=== PATIENT | female | born 1950 | race Hispanic/Latino ===

== ENCOUNTER → 2018-12-31 | Day surgery (SDC) | payer OTHER ==
[2018-12-23 12:03] LABS: BASOPHILS % 0.7 % (0.0-1.0); EOSINOPHILS # (AUTO) 0.2 (0.0-0.4); EOSINOPHILS % 3.1 % (0.0-6.0); HEMATOCRIT 45.2 % (34.2-44.1); LYMPHOCYTES # (AUTO) 2.1 (1.0-3.2); LYMPHOCYTES % 35.8 % (18.0-39.1); MEAN CORPUSCULAR HEMOGLOBIN 27.1 pg (28-32); MEAN CORPUSCULAR VOLUME 87.4 fL (81-99); MONOCYTES # (AUTO) 0.5 (0.2-0.8); MONOCYTES % 7.8 % (4.4-11.3); NEUTROPHILS % 52.4 % (38.7-80.0); PLATELET COUNT 399 x10e3/uL (140-360); RED BLOOD COUNT 5.17 x10e6/uL (3.6-5.1)
[~2018-12-31] MED LIST: ARTHRITIS; BIOTIN PO; BIOTIN5 M1 PO; CINNAMON500 MG PO; COLLAGEN PO; EMBREL PO; FENTANYL CITRATE/PF 100MCG/2 ML INJ ONE; FISH OIL 1,0001 EAC3 PO; FOLIC ACID1 MG PO; HYDROCODONE PO; HYOSCYAMINE SULFATE 0.5 MG/ML INJ ONE; HYOSCYAMINE0.125 M1 PO; IRON PO; KETAMINE HCL INJ 50 MG/ML 10 ML VIAL ONE; LIDOCAINE HCL 2% LOCAL INJ 5 ML SDV VIAL INJ ONE; LINZESS PO; LYRICA50 MG PO; METHOCARBAMOL750 MG PO; METHOTREXATE PO; MIDAZOLAM HCL 2 MG/2 ML VIAL ONE; MUSCLE RELAXER PO; NAPROXEN250 MG PO; NIACIN; OMEGA 3 FISH O1 EACH PO; OMEPRAZOLE; PANTOPRAZOLE SO40 MG PO; PREDNISONE5 MG PO; PRENATAL PO; PROPOFOL IV EMULSION 10 MG/ML 50 ML VIAL ONE; SUCRALFATE1 GM PO; ULTRAM 50MG50 MG PO; VITAMIN C500 M3 PO; VITAMIN E400 UNIT PO; flexeril PO
--- OUTSIDE RECORDS SUMMARY | 2018-12-31 08:00 | XMS REPORT | Clinical Summary ---
Author Author [facility] Address Unknown Phone Unavailable Care Team Providers Care Cloth Mercerizing Supervisor Name Role Phone Justin Palencia PCP Allergies No Known Allergies Medications End Date Status Medication Sig Dispensed Refills Start Date Active pantoprazole (PROTONIX) Take 40 mg by 0 40 MG tablet mouth daily. Active folic acid (FOLVITE) 1 MG Take 1 mg by 0 tablet mouth daily. Active sucralfate (CARAFATE) 1 Take 1 g by 0 gram tablet mouth 4 (four) times daily. Active etanercept (ENBREL) 50 Inject 50 mg 0 mg/mL (0.98 mL) injection subcutaneousl y once a week. Active traMADol (ULTRAM) 50 mg Take 50 mg by 0 tablet mouth every 8 (eight) hours as needed for Pain . Active linaclotide (LINZESS) 145 Take 145 mcg 0 mcg Cap by mouth daily. Active Problems Problem Noted Date S/P endoscopy 04/07/2016 Social History Date Tobacco Use Types Packs/Day Years Used Never Smoker Smokeless Tobacco: Never Used Alcohol Use Drinks/Week oz/Week Comments No Sex Assigned at Date Recorded Not on file Industry Job Start Date Occupation Not on file Not on file Not on file Travel End Travel History Travel Start No recent travel history available. Last Filed Vital Signs Not on file Plan of Treatment Not on file Results Not on fileafter 12/30/2017 Insurance Payer Benefit Subscriber ID Type Phone Address Plan / Group AETNA - [place] C[employer] AETNA HMO xxxxxxxxxx HMO/POS POS QPOS
--- OUTSIDE RECORDS SUMMARY | 2018-12-31 08:01 | XMS REPORT ---
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 frequency:, 1-5, cups/day March 13, 2014 Exercise: no. March 13, 2014 Alcohol: no. March 13, 2014 Summary Purpose eClinicalWorks Submission
--- OUTSIDE RECORDS SUMMARY | 2018-12-31 08:01 | XMS REPORT | Continuity of Care Document ---
Author Author [facility] [place] [facility] Address Unknown Phone Unavailable Problems Problem Status Onset Date Classification Date Reported Comments Source Unspecified inflammatory polyarthropathy Active Problem 10/02/2014 Sriram Willoughbyer Iron deficiency anemia secondary to blood loss Active Problem 10/02/2014 Sriram Willoughbyer Fibromyalgia Active Problem 10/02/2014 Sriram Willoughbyer Osteoarthrosis, multiple sites Active Problem 10/02/2014 Sriram Lu Chronic fatigue syndrome Active Problem 10/02/2014 Sriram Lu Long-term use of other medications - High Risk Active Problem 10/02/2014 Sriram Lu Polyarthritis, multiple sites Active Problem 10/02/2014 Sriram Lu Pain, back Active Problem 10/02/2014 Sriram Lu Rheumatoid arthritis Active Problem 10/02/2014 Sriram Lu Unspecified drug dependence Active Diagnosis 07/14/2014 Sriram Lu Medications Medication Details Route Status Patient Instructions Ordering Provider Order Date Source Folic Acid take 1 tablet by mouth every morning Orally Active 1 MG Orally Once a day Muriel 01/08/2015 Sriram Lu Vicodin ES 1 tablet as needed for pain Orally Active 7.5-300 MG Orally four times a day Lu 09/20/2014 Sriram Lu Methotrexate 4 tablets Orally Active 2.5mg Orally Once a week Muriel 07/19/2014 Sriram Lu Leflunomide 1 tablet Orally Active 10 MG Orally Once a day Muriel 07/12/2014 Sriram Lu Methotrexate Take 3 tablets Orally No Longer Active 2.5mg Orally Once a week Muriel 06/06/2014 Sriram Lu Hydrocodone-Acetaminophen 1 tablet as needed Orally Active 7.5- 325 MG Orally every 6 hrs Muriel 03/13/2014 Sriram Lu Lyrica 1 capsule Orally Active 50 MG Orally Three times a day Muriel 01/12/2014 Sriram Lu Vitamin D 1 capsule Orally Active Orally Once a day Muriel Sriram Lu Cyclobenzaprine HCl TAKE 1 TABLET BY MOUTH ONCE A DAY EXCEPT ON DAYS TAKING RHEUMAQUIN NA Active 10 MG Muriel Sriram Lu Pantoprazole Sodium take 1 tablet by mouth every day Orally Active 40 MG Orally twice a day Muriel Sriramsherif Lu Vicodin ES 1 tablet as needed for pain Orally Active 7.5-300 MG Orally four times a day Muriel Sriram Lu Cinnamon as directed Orally Active Orally once a day Muriel Sriram Lu Fish Oil 1 capsule with a meal Orally Active Orally Once a day Muriel Sriram Lu Calcium 1 tablet with meals Orally Active 600 MG Orally Twice a day Muriel Sriram Lu Allergies, Adverse Reactions, Alerts Substance Category Reaction Severity Reaction type Status Date Reported Comments Source neurontin Adverse Reaction Info Not Available Adverse Reaction Active 07/24/2014 Sriram Lu Immunizations Immunization Date Given Site Status Last Updated Comments Source Results Order Name Results Value Reference Range Date Interpretation Comments Source Vital Signs Vital Sign Value Date Comments Source Weight 129 07/24/2014 Sriram Lu Height 60.5 07/24/2014 Sriram Willoughbyer Temperature Oral (F) 96.6 F 07/24/2014 Sriram Lu Heart Rate 90 07/24/2014 Sriram Lu Diastolic (mm Hg) 80 07/24/2014 Sriram Lu Systolic (mm Hg) 134 07/24/2014 Sriram Lu Weight 132 07/12/2014 Sriram Lu Height 61 07/12/2014 Sriram Willoughbyer Temperature Oral (F) 97.3 F 07/12/2014 Sriram Lu Heart Rate 80 07/12/2014 Sriram Lu Diastolic (mm Hg) 96 07/12/2014 Sriram Lu Systolic (mm Hg) 150 07/12/2014 Sriram Lu Encounters Location Location Details Encounter Type Encounter Number Reason For Visit Attending Provider ADM Date DC Date Status Source Dave Lu MD code [id number] 03/14/2014 03/14/2014 Sriram Lu MD code [id number] 03/14/2014 03/14/2014 Sriram Lu MD code [id number] 03/14/2014 03/14/2014 Sriram Lu MD code [id number] 03/14/2014 03/14/2014 Sriram Lu MD code [id number] 03/14/2014 03/14/2014 Sriram Lu MD code [id number] 03/14/2014 03/14/2014 Sriram Lu MD code [id number] 03/14/2014 03/14/2014 Sriram Lu MD code [id number] 03/14/2014 03/14/2014 Sriram Lu MD code [id number] 03/14/2014 03/14/2014 Sriram Lu MD RX Request-- MTX [id number] 06/06/2014 06/06/2014 Sriram Lu MD RX Request-- MTX [id number] 06/06/2014 06/06/2014 Sriram Lu MD RX Request-- MTX [id number] 06/06/2014 06/06/2014 Sriram Lu MD RX Request-- MTX [id number] 06/06/2014 06/06/2014 Sriram Lu MD RX Request-- MTX [id number] 06/06/2014 06/06/2014 Sriram Lu MD RX Request-- MTX [id number] 06/06/2014 06/06/2014 Sriram Lu MD RX Request-- MTX [id number] 06/06/2014 06/06/2014 Sriram Lu MD RX Request-- MTX [id number] 06/06/2014 06/06/2014 Sriram Lu MD dexa [id number] 07/09/2014 07/09/2014 Sriram Lu MD dexa [id number] 07/09/2014 07/09/2014 Sriram Lu MD dexa [id number] 07/09/2014 07/09/2014 Sriram Lu MD dexa [id number] 07/09/2014 07/09/2014 Sriram Lu MD dexa [id number] 07/09/2014 07/09/2014 Sriram Lu MD dexa [id number] 07/09/2014 07/09/2014 Sriram Lu MD dexa [id number] 07/09/2014 07/09/2014 Sriram Lu MD [facility] /U [id number] 07/12/2014 07/12/2014 Sriram Lu MD [facility] F/U [id number] 07/12/2014 07/12/2014 Sriram Lu MD [facility] /U [id number] 07/12/2014 07/12/2014 Sriram Lu MD [facility]/U [id number] 07/12/2014 07/12/2014 Sriram Lu MD [facility]/U [id number] 07/12/2014 07/12/2014 Sriram Lu MD [facility]/U [id number] 07/12/2014 07/12/2014 Sriram Lu MD LEFLUNOMIDE REACTION [id number] 07/17/2014 07/17/2014 Sriram Lu MD LEFLUNOMIDE REACTION [id number] 07/17/2014 07/17/2014 Sriram Lu MD LEFLUNOMIDE REACTION [id number] 07/17/2014 07/17/2014 Sriram Lu MD LEFLUNOMIDE REACTION [id number] 07/17/2014 07/17/2014 MD GREGORIO TinsleyMIDE REACTION [id number] 07/17/2014 07/17/2014 Sriram Lu MD F/U [id number] 07/24/2014 07/24/2014 Sriram Lu MD F/U [id number] 07/24/2014 07/24/2014 Sriram Lu MD F/U [id number] 07/24/2014 07/24/2014 Sriram Lu MD Labs [id number] 07/24/2014 07/24/2014 Sriram Lu MD Labs [id number] 07/24/2014 07/24/2014 Sriram Lu MD Labs [id number] 07/24/2014 07/24/2014 Sriram Lu MD Labs [id number] 07/24/2014 07/24/2014 Sriram Lu MD Labs [id number] 07/24/2014 07/24/2014 Sriram Lu MD Refill--Vicodin 08/30 [id number] 08/21/2014 08/21/2014 Sriram Lu MD Refill--Vicodin 08/30 [id number] 08/21/2014 08/21/2014 Sriram Lu MD Refill--Vicodin 08/30 [id number] 08/21/2014 08/21/2014 Sriram Lu MD RA studies [id number] 09/27/2014 09/27/2014 Sriram Lu Procedures Procedure Code Date Perfomer Comments Source
--- OUTSIDE RECORDS SUMMARY | 2018-12-31 08:01 | XMS REPORT ---
Author Dave Marie [facility] eClinicalWorks Address Unknown Phone Unavailable Care Team Providers Care Software Test Technician Name Role Phone Dave Lu Unavailable Encounters Encounter Location Date code Dave Lu MD March 14, 2014 RX Request-- MTX Dave Lu MD Jun 06, 2014 dexa Dave Lu MD Jul 09, 2014 Problems Problem Type Condition ICD-9 Code [...]
--- OUTSIDE RECORDS SUMMARY | 2018-12-31 08:01 | XMS REPORT ---
Author Dave Marie eClinicalWorks Address Unknown Phone Unavailable Care Team Providers Care Tool Distributor Name Role Phone Dave Lu CP Unavailable Encounters Encounter Location Date [facility] F/U Dave Lu MD Jul 12, 2014 LEFLUNOMIDE REACTION Dave Lu MD Jul 17, 2014 Labs Dave Lu MD Jul 24, 2014 F/U Dave Lu MD Jul 24, 2014 code Dave Lu MD March 14, 2014 RX Request-- MTX Dave Lu MD Jun 06, 2014 dexa Dave Lu MD Jul 09, 2014 Refill--Vicodin 08/30 Dave Lu MD Aug 21, 2014 RA studies Dave Lu MD Sep 27, 2014 Problems Problem Type Condition ICD-9 Code Onset Dates Condition Status Problem Unspecified inflammatory polyarthropathy 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 Are you a:: never smoker Jul 24, 2014 Caffeine: yes. 2 cups a day Jul 24, 2014 Exercise: no. Jul 24, 2014 Alcohol: no. Jul 24, 2014 Summary Purpose eClinicalWorks Submission
--- OUTSIDE RECORDS SUMMARY | 2018-12-31 08:01 | XMS REPORT | Summary of Care ---
Author Author MI Loaiza, [facility] Unknown Address Unknown Phone Unavailable Care Team Providers Care Pharmaceutical Compounding Supervisor Name Role Phone MI Loaiza, [facility] Unavailable Unavailable [place], [facility] Unavailable Unavailable Unavailable Unavailable Functional Status Name Dates Details Functional status health issues are not documented Status: Name Dates Details Cognitive status health issues are not documented Status: Problems Name Dates Details Iron deficiency anemia (280.9, D50.9) Status: Active Diverticulitis (562.11, K57.92) Status: Active Rheumatoid arthritis (714.0, M06.9) Status: Active Vitamin D deficiency disease (268.9, E55.9) Status: Active Post-menopausal (V49.81, Z78.0) Status: Active Anemia (285.9, D64.9) Status: Active Osteopenia (733.90, M85.80) Status: Active Chronic left sacroiliac pain (724.6, M53.3) Status: Active Long-term use of immunosuppressant medication (V58.69, Z79.899) Status: Active NSAID long-term use (V58.64, Z79.1) Status: Active Chronic pain of right knee (719.46, M25.561) Status: Active Acute pain of left knee (719.46, M25.562) Status: Active Psoriatic arthropathy (696.0, L40.50) Status: Active Fibromyalgia (729.1, M79.7) Status: Active Chronic pain of left knee (719.46, M25.562) Status: Active Neck muscle spasm (728.85, M62.838) Status: Active Cervicalgia (723.1, M54.2) Status: Active Encounter for monitoring of etanercept therapy (V58.83, Z51.81) Status: Active Knee effusion, right (719.06, M25.461) Status: Active Arthralgia of hand, left (719.44, M25.542) Status: Active Arthralgia of hand, right (719.44, M25.541) Status: Active Chondrocalcinosis of knee, left (275.49, M11.262) Status: Active Chondrocalcinosis of knee, right (275.49, M11.261) Status: Active Chronic midline low back pain without sciatica (724.2, M54.5) Status: Active Costochondritis (733.6, M94.0) Status: Active Medications Name Dates Details Linzess 145 MCG Oral Capsule TAKE 1 CAPSULE DAILY * Start : 04-Sep-2014 Active Biotin TABS 62220 1 tab QD * Refills: 0 * Start : 04-Sep-2014 Active traMADol HCl - 50 MG Oral Tablet TAKE 2 TABLETS BY MOUTH 3 TIMES A DAY NEEDED FOR PAIN * Quantity: 180 Refills: 1 FRANKO HANNON M.D. * Start : 04-Dec-2014 Active Centrum Silver Oral Tablet TAKE 1 TABLET DAILY. * Refills: 0 * Start : 28-Jan-2016 Active Cosentyx Sensoready Pen 150 MG/ML Subcutaneous Solution Auto-injector Inject 150 mg subcutaneously once weekly at weeks 0, 1, 2, 3, and 4 followed by 150 mg every 4 weeks * Quantity: 1 Refills: 6 MI Loaiza, FAROK[facility] * Start : 09-Aug-2018 Active Milliliter tiZANidine HCl - 2 MG Oral Tablet TAKE 1 TABLET BY MOUTH EVERY EVENING NEEDED FOR NECK SPASM. MAY TAKE UP TO 3 TIMES DAILY NEEDED FOR SPASM * Quantity: 270 Refills: 0 SHAN HANNON M.D.OKH * Start : 21-Oct-2018 Active Allergies and Adverse Reactions Name Dates Details No Known Allergies (Allergy) Status: Active Past Medical History Name Dates Details History of Anemia (285.9, D64.9) Status: Resolved Procedures Procedure Dates Details [QL] PTH, INTACT (WITHOUT CALCIUM) Date: 14-Nov-2018 History of Appendectomy Completed History of Hysterectomy Completed Immunization Name Dates Details Pneumovax 23 25 MCG/0.5ML Injection Injectable Lot #: [id number] on: 04-Sep-2014 PPD, tuberculin skin test; purified protein derivative solution, intradermal on: 09-Aug-2018 Family History Name Dates Details Family history of Heart disease (429.9, I51.9) Status: Active Name Dates Details Family history of Heart disease (429.9, I51.9) Status: Active Social History Name Dates Details - Status: Name Dates Details Never smoker Vital Signs Date Test Result Details :53 BP Systolic 132 mm[Hg] Status: Comments: Location: LUE; Position: Sitting BP Diastolic 70 mm[Hg] Status: Comments: Location: LUE; Position: Sitting :42 BP Systolic 152 mm[Hg] Status: Comments: Location: LUE; Position: Sitting BP Diastolic 74 mm[Hg] Status: Comments: Location: LUE; Position: Sitting Weight 132 lb Status: Body Mass Index Calculated 24.94 kg/m2 Status: Body Surface Area Calculated 1.58 m2 Status: Temperature 97.7 f Status: Comments: Method: Oral Heart Rate 81 /min Status: Respiration Rate 16 /min Status: Results Date Description Value Details Results not documented Plan of Care Name Dates Details Planned Observations Planned Goals not documented Planned Encounters Appointment; FRANKO HANNON M.D. On: 01-Mar-2019 10:00 Interventions Provided Medication Changes* tiZANidine HCl - 2 MG Oral Tablet - Renew * traMADol HCl - 50 MG Oral Tablet - Renew Labs/Procedures/Imaging* [QLH] PTH, INTACT (WITHOUT CALCIUM); To Be Done: 14 Nov 2018 Discussion/Summary* 68 yo HF with PsA (denies h/o psoriasis except maybe along EACs identified by Dr. Rodriguez; has brother with severe psoriasis) and possibly (sacroiliitis on imaging), as well as FMS, here for f/u. Previously saw Dr. Rodriguez. Anemia improved off MTX previously. Still taking Enbrel, tramadol, and Lyrica (previously methocarbamol) have helped as well. Naproxen was recently stopped b/c of anemia and occult/slow GIB that's being tx'ed by [facility] and hem/onc. She's very medication-averse and previously has declined adding on any new meds or changing her medication regimen in any way. She has mild OA and chondrocalcinosis seen on XRs of both knees in the past. Pseudogout masquerading as RA is unlikely. Didn't obtain CPPD labs we ordered at a prior visit. * Afraid of MTX b/c it may have caused anemia in the past and is very medication-averse. Historically, Enbrel/MTX combo was very effective for her pain. Humira didn't help. Has never had LFN nor other PsA/ meds. Since last visit, she finally started Cosentyx but has only had 2 doses so far. No longer taking Enbrel. * - C/w Cosentyx. * - Lyrica helpful for FMS but too expensive so is on tizanidine, refilled. * - C/w tramadol. Refilled * - PTH for CPPD lab workup completion * - Last T-spot 08/2018 negative. * - Not taking NSAIDs. * - Recheck DXA in 2019 since last showed osteopenia (eval'ed by Dr. Rodriguez). She declines checking DXA or surveillance XRs now and wants to defer them until next visit. * - Flu shot UTD (had it 05/2018), needs PPSV23 again since initially had it at < age 65. Had Zostavax 3 yrs ago but hasn't had Shingrix. May obtain Shingrix if approved by insurance, since it's more effective than Zostavax. * RTC 3 months or sooner PRN. * I spent 30 minutes yogm-tr-ivjx with the patient, more than half of which was spent in counseling about above issues and coordinating care as above. * Franko Hannon MD * Staff Top Distribution Executive * [facility] Instructions Name Dates Details Instructions not documented Encounters Appointment; FRANKO HANNON M.D. Encounter Diagnosis: Problem not documented On: 03-Dec-2016 10:00 Appointment; FRANKO HANNON M.D. Encounter Diagnosis: Problem not documented On: 08-Mar-2017 10:00 Appointment; FRANKO HANNON M.D. Encounter Diagnosis: Problem not documented On: 20-Sep-2017 10:00 Appointment; FRANKO HANNON M.D. Encounter Diagnosis: Problem not documented On: 22-Mar-2018 10:00 Appointment; FRANKO HANNON M.D. Encounter Diagnosis: Problem not documented On: 09-Aug-2018 10:00 Appointment; FRANKO HANNON M.D. Encounter Diagnosis: Problem not documented On: 02-Sep-2018 10:00 Appointment; FRANKO HANNON M.D. Encounter Diagnosis: Problem not documented On: 14-Nov-2018 10:00
--- OUTSIDE RECORDS SUMMARY | 2018-12-31 08:01 | XMS REPORT ---
Author Dave Marie [facility] eClinicalWorks Address Unknown Phone Unavailable Care Team Providers Care Cook Fish Eggs Name Role Phone Dave Lu CP Unavailable [...] 08/30 Dave Lu MD Aug 21, 2014 Problems Problem Type Condition ICD-9 Code [...] Active Problem Polyarthritis, multiple sites 716.59 Active Medications Medication Code System Code Instructions Start Date End Date Status Dosage Vicodin ES [facility] [address]-12 7.5-300 MG Orally four times a day Sep 20, 2014 Active 1 tablet as needed for pain Social History Social History Element Qualifiers Date Reported Tobacco Use: . Are you a:: never smoker Jul 24, 2014 Caffeine: yes. 2 cups a day Jul 24, 2014 Exercise: no. Jul 24, 2014 Alcohol: no. Jul 24, 2014 Summary Purpose eClinicalWorks Submission
--- OUTSIDE RECORDS SUMMARY | 2018-12-31 08:01 | XMS REPORT ---
Author Author Dave Lu [facility] eClinicalWorks Address Unknown Phone Unavailable Care Team Providers Care Carpenter General Name Role Phone Dave Lu Unavailable Encounters Encounter Location Date code Dave Lu MD March 14, 2014 RX Request-- MTX Dave Lu MD Jun 06, 2014 Problems Problem Type Condition ICD-9 Code [...] 716.59 Active Problem Pain, back 724.5 Active Medications Medication Code System Code Instructions Start Date End Date Status Dosage Methotrexate Unknown 0 2.5mg Orally Once a week Jun 06, 2014 Aug 05, 2014 Active Take 3 tablets Social History Social History Element Qualifiers Date Reported Caffeine: yes. frequency:, 1-5, cups/day March 13, 2014 Exercise: no. March 13, 2014 Alcohol: no. March 13, 2014 Summary Purpose eClinicalWorks Submission
--- OUTSIDE RECORDS SUMMARY | 2018-12-31 08:01 | XMS REPORT ---
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.9 Active Problem Long-term (current) use of other medications - High Risk V58.69 Active Problem Osteoarthrosis, multiple sites 715.09 Active Problem 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 Problem Rheumatoid arthritis 714.0 Active Problem Pain, back 724.5 Active Problem Chronic fatigue syndrome 780.71 Active Problem Fibromyalgia 729.1 Active Problem Polyarthritis, multiple sites 716.59 Active Assessment Long-term (current) use of other medications - High Risk V58.69 Active Assessment Polyarthritis, multiple sites 716.59 Active Assessment Fibromyalgia 729.1 Active Medications Medication Code System Code Instructions Start Date End Date Status Dosage Pantoprazole Sodium [facility] [address]-10 40 MG Orally twice a day Active take 1 tablet by mouth every day Fish Oil [facility] [address]-43 Orally Once a day Active 1 capsule with a meal Hydrocodone-Acetaminophen [facility] [address]-14 7.5-325 MG Orally every 6 hrs March 13, 2014 Active 1 tablet as needed Folic Acid [facility] [address]-49 1 MG Orally Once a day January 08, 2015 Active take 1 tablet by mouth every morning Calcium [facility] [address] 600 MG Orally Twice a day Active 1 tablet with meals Vitamin D [facility] [address] Orally Once a day Active 1 capsule Lyrica [facility] [address]-00 50 MG Orally Three times a day January 12, 2014 Active 1 capsule Vicodin ES [facility] [address]-26 7.5-300 MG Orally four times a day Active 1 tablet as needed for pain Methotrexate Unknown 0 2.5mg Orally Once a week Jul 19, 2014 Aug 18, 2014 Active 4 tablets Cyclobenzaprine HCl [facility] 46323974757 10 MG Active TAKE 1 TABLET BY MOUTH ONCE A DAY EXCEPT ON DAYS TAKING RHEUMAQUIN Cinnamon [facility] [address] Orally once a day Active as directed Social History Social History Element Qualifiers Date Reported Tobacco Use: . Are you a:: never smoker Jul 24, 2014 Caffeine: yes. 2 cups a day Jul 24, 2014 Exercise: no. Jul 24, 2014 Alcohol: no. Jul 24, 2014 Vital Signs Date/Time: Jul 24, 2014 Weight 129 lbs Height 60.5 in Temperature 96.6 F Cardiac Monitoring Heart Rate 90 /min Blood Pressure Diastolic 80 mm Hg Blood Pressure Systolic 134 mm Hg Summary Purpose eClinicalWorks Submission
--- OUTSIDE RECORDS SUMMARY | 2018-12-31 08:01 | XMS REPORT ---
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 Are you a:: never smoker Jul 24, 2014 Caffeine: yes. 2 cups a day Jul 24, 2014 Exercise: no. Jul 24, 2014 Alcohol: no. Jul 24, 2014 Summary Purpose eClinicalWorks Submission
--- OUTSIDE RECORDS SUMMARY | 2018-12-31 08:01 | XMS REPORT ---
Author Author Maribel Llamas [facility] [place] eClinicalWorks Address Unknown Phone Unavailable Care Team Providers Care Tuft Machine Operator Name Role Phone Maribel Llamas Unavailable Allergies, Adverse Reactions, Alerts Substance Reaction Event Type neurontin Info Not Available Non Drug Allergy Encounters Encounter Location Date [facility] F/U Dave Lu MD Jul 12, 2014 code Dave Lu MD March 14, 2014 RX Request-- MTX Dave Lu MD Jun 06, 2014 dexa Dave Lu MD Jul 09, 2014 Problems Problem Type Condition ICD-9 Code Onset Dates Condition Status Assessment Fibromyalgia 729.1 Active Problem Unspecified inflammatory polyarthropathy 714.9 Active Assessment Unspecified inflammatory polyarthropathy 714.9 Active Problem 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 Problem Fibromyalgia 729.1 Active Problem Osteoarthrosis, multiple sites 715.09 Active Problem Chronic fatigue syndrome 780.71 Active Problem Long-term (current) use of other medications - High Risk V58.69 Active Problem Polyarthritis, multiple sites 716.59 Active Problem Pain, back 724.5 Active Assessment Unspecified drug dependence 304.90 Active Assessment Long-term (current) use of other medications - High Risk V58.69 Active Assessment Osteoarthrosis, multiple sites 715.09 Active Medications Medication Code System Code Instructions Start Date End Date Status Dosage Vitamin D [facility] [address] Orally Once a day Active 1 capsule Cyclobenzaprine HCl [facility] 68662923971 10 MG Active TAKE 1 TABLET BY MOUTH ONCE A DAY EXCEPT ON DAYS TAKING RHEUMAQUIN Pantoprazole S[facility] [address]-74 40 MG Orally twice a day Active take 1 tablet by mouth every day Folic Acid [facility] [address]-18 1 MG Orally Once a day January 08, 2015 Active take 1 tablet by mouth every morning Vicodin ES [facility] [address]-95 7.5-300 MG Orally four times a day Active 1 tablet as needed for pain Cinnamon [facility] [address] Orally once a day Active as directed Lyrica [facility] [address]-22 50 MG Orally Three times a day January 12, 2014 Active 1 capsule Methotrexate Unknown 0 2.5mg Orally Once a week Jun 06, 2014 Jul 12, 2014 Inactive Take 3 tablets Fish Oil [facility] [address]-53 Orally Once a day Active 1 capsule with a meal Hydrocodone-Acetaminophen [facility] [address]-86 7.5-325 MG Orally every 6 hrs March 13, 2014 Active 1 tablet as needed Leflunomide [facility] [address]-44 10 MG Orally Once a day Jul 12, 2014 Oct 10, 2014 Active 1 tablet Calcium [facility] [address] 600 MG Orally Twice a day Active 1 tablet with meals Social History Social History Element Qualifiers Date Reported Tobacco Use: . Are you a:: never smoker Jul 12, 2014 Caffeine: yes. 2 cups a day Jul 12, 2014 Exercise: no. Jul 12, 2014 Alcohol: no. Jul 12, 2014 Vital Signs Date/Time: Jul 12, 2014 Weight 132 lbs Height 61 in Temperature 97.3 F Cardiac Monitoring Heart Rate 80 /min Blood Pressure Diastolic 96 mm Hg Blood Pressure Systolic 150 mm Hg Summary Purpose eClinicalWorks Submission
--- OUTSIDE RECORDS SUMMARY | 2018-12-31 08:01 | XMS REPORT ---
Author Dave Marie [facility] eClinicalWorks Address Unknown Phone Unavailable Care Team Providers Care Cash Van Salesperson Name Role Phone Dave Lu CP Unavailable [...] ICD-9 Code Onset Dates Condition Status Assessment Long-term (current) use of other medications - High Risk V58.69 Active Problem Unspecified inflammatory polyarthropathy 714.9 Active Problem Long-term (current) use of other medications - High Risk V58.69 Active Assessment Fibromyalgia 729.1 Active Problem Osteoarthrosis, multiple sites [...]
[2018-12-31 11:16] VITALS: BP 127/62
--- NOTE | 2018-12-31 15:45 | Operative Report ---
DATE OF PROCEDURE: 12/31/2018 SURGEON: Eladio Romero MD PROCEDURE: Colonoscopy and polypectomy. INDICATIONS FOR COLONOSCOPY: Surveillance colonoscopy, personal history of colon polyps. MEDICATIONS: The patient was done under MAC, please see anesthesiologist's note. PROCEDURE IN DETAIL: With the patient in left lateral decubitus position, flexible fiberoptic Olympus colonoscope was inserted into the rectum with ease and advanced all the way to the cecum. The scope was then withdrawn slowly, mucosa overlying the cecum and ascending colon appeared to be within normal limits. One polyp was hot biopsied from the transverse colon. One polyp was hot biopsied from the descending colon. Diverticular disease was noted in the sigmoid colon. One polyp was snared from the sigmoid colon. One polyp was hot biopsied from the rectum. The scope was then retroflexed into the distal rectum and small internal hemorrhoids were noted, none of which was actively bleeding. The scope was then straightened out, it was subsequently withdrawn. The patient tolerated the procedure well. IMPRESSION: 1. Transverse colon polyp, hot biopsied. 2. Descending colon polyp, hot biopsied. 3. Sigmoid colon polyp, snared. 4. Diverticulosis. 5. Rectal polyp, hot biopsied. 6. Internal hemorrhoids, none actively bleeding. PLAN: Follow up histology. Initiate high-fiber, low-fat diet. Initiate high-fiber supplement. The patient might benefit from a followup colonoscopy in 3 years. Eladio Romero MD [facility] [place] /[id number] cc: Justin Palencia DO
== END | disposition home or self-care (01) ==
LOC: OR 07:58
PROVIDERS: ATTEND Internal Medicine Gastroenterology
DX: Z12.11 Encounter for screening for malignant neoplasm of colon (principal); D12.5 Benign neoplasm of sigmoid colon; D12.3 Benign neoplasm of transverse colon; Z86.010 Personal history of colon polyps; F41.9 Anxiety disorder, unspecified; G89.29 Other chronic pain; K63.5 Polyp of colon; K62.1 Rectal polyp; K64.8 Other hemorrhoids; K57.30 Diverticulosis of large intestine without perforation or abscess without bleeding
CPT/HCPCS: 36415; 45384; 45385; 85025; 93005; J1980; J2001; J2250; J2704

== ENCOUNTER → 2024-04-01 | Day surgery (SDC) | payer MEDICARE ==
[2024-03-29 12:25] LABS: BASOPHILS # (AUTO) 0.1 (0.0-0.1); BASOPHILS % 1.6 % (0.0-1.0); EOSINOPHILS # (AUTO) 0.2 (0.0-0.4); EOSINOPHILS % 3.3 % (0.0-6.0); HEMATOCRIT 38.3 % (34.2-44.1); HEMOGLOBIN 11.9 g/dL (12.0-16.0); LYMPHOCYTES # (AUTO) 1.7 (1.0-3.2); LYMPHOCYTES % 30.9 % (18.0-39.1); MEAN CORPUSCULAR HEMOGLOBIN 29.2 pg (28-32); MEAN CORPUSCULAR HGB CONC 31.1 g/dL (31-35); MEAN CORPUSCULAR VOLUME 93.9 fL (81-99); MONOCYTES # (AUTO) 0.4 (0.2-0.8); MONOCYTES % 7.8 % (4.4-11.3); NEUTROPHILS # (AUTO) 3.1 (2.1-6.9); NEUTROPHILS % 56.2 % (38.7-80.0); PLATELET COUNT 393 x10e3/uL (140-360); RED BLOOD COUNT 4.08 x10e6/uL (3.6-5.1); WHITE BLOOD COUNT 5.51 x10e3/uL (4.8-10.8)
[~2024-04-01] MED LIST changes: +B12 ACTIVE1000 MCG PO; +CELEBREX200 MG PO; -FENTANYL CITRATE/PF 100MCG/2 ML INJ ONE; +FERROUS SULFAT324 MG PO; -HYOSCYAMINE SULFATE 0.5 MG/ML INJ ONE; -KETAMINE HCL INJ 50 MG/ML 10 ML VIAL ONE; +LACTATED RINGER'S 1,000 ML ONE; -LIDOCAINE HCL 2% LOCAL INJ 5 ML SDV VIAL INJ ONE; +LISINOPRIL10 MG PO; +MELATONIN PO; +OXY PO; +PROBIOTIC & AC1 EACH PO; -PROPOFOL IV EMULSION 10 MG/ML 50 ML VIAL ONE; +TIZANIDINE HCL4 MG PO
[2024-04-01 17:28] VITALS: BP 129/64; PULSE 81; RESP 18; TEMP 97; O2SAT 98
== END | disposition home or self-care (01) ==
LOC: OR 01:38
PROVIDERS: ATTEND Internal Medicine Gastroenterology
DX: Z09 Encounter for follow-up examination after completed treatment for conditions other than malignant neoplasm (principal); Z86.010 Personal history of colon polyps; K56.609 Unspecified intestinal obstruction, unspecified as to partial versus complete obstruction; K57.30 Diverticulosis of large intestine without perforation or abscess without bleeding; K59.04 Chronic idiopathic constipation; K64.8 Other hemorrhoids; K29.60 Other gastritis without bleeding; K21.9 Gastro-esophageal reflux disease without esophagitis; Z71.3 Dietary counseling and surveillance; Z87.19 Personal history of other diseases of the digestive system; D64.9 Anemia, unspecified; I10 Essential (primary) hypertension; Z71.89 Other specified counseling; L40.50 Arthropathic psoriasis, unspecified; Z01.810 Encounter for preprocedural cardiovascular examination; Z01.812 Encounter for preprocedural laboratory examination; Z79.899 Other long term (current) drug therapy; Z68.25 Body mass index [BMI] 25.0-25.9, adult; Z86.19 Personal history of other infectious and parasitic diseases
CPT/HCPCS: 36415; 45378; 85025; 93005; J2250; J7121